=== PATIENT | female | born 2000 | race Caucasian/White ===

== ENCOUNTER 2018-04-16 17:19 | Emergency (ER) | payer MEDICAID, OTHER ==
[~2018-04-16] VITALS: Ht 160 cm; Wt 90.0 kg
[~2018-04-16 17:19] MED LIST: ALBU0.08 NEB; ALBUAER3 INH; AZIT250T3 PO; HYDR2.5C TOPICAL; MONT10TA2 PO; PRED20 PO; TRIAM.1%T TOPICAL
[2018-04-16 17:26] VITALS: BP 131/60; PULSE 89; RESP 20; TEMP 98.2; O2SAT 98
[2018-04-16] MEDS ORDERED: AMOX500C PO (18:47)
--- NOTE | 2018-04-16 18:47 | PD ---
HPI Chief Complaint: Cold / Flu Symptoms Time Seen by Provider: 18:39 Travel History International Travel<30 days: No Contact w/Intl Traveler<30days: No Traveled to known affect area: No History of Present Illness HPI 17-year-old female complains of sore throat and dry cough. Patient states that the symptoms started several days ago. Patient denies any fever. Patient denies any chest pain or shortness of breath. Patient denies abdominal pain. Patient states that she has intermittent nausea vomiting. Patient denies any dysuria frequency. PFSH Past Medical History Asthma: Yes Autoimmune Disease: No Cardiovascular Problems: No Developmental Delay: No Diminished Hearing: No Genitourinary: No Musculoskeletal: Yes (LEFT SIDE AND BACK PAIN FOR LAST FEW YEARS) Neurologic: No Psychiatric: No Reproductive: Yes (BAD CRAMPS) Respiratory: Yes (Asthma) Resp. Syncytial Virus (RSV): Yes ( CHILD) Immunizations Current: Yes ?: Not LMP: jJune 3 : 0 Past Surgical History Other Surgery: No Social History Alcohol Use: No Tobacco Use: No Substance Use: No Allergies-Medications (Allergen,Severity, Reaction): Coded Allergies: egg (Unverified Allergy, Mild, Rash, 06/07/17) cetirizine (Unverified Adverse Reaction, Severe, 06/07/17) Reported Meds & Prescriptions Reported Meds & Active Scripts Active Prednisone 20 Mg Tab 40 Mg PO DIRECTED Hydrocortisone Topical 2.5% Cream 1 Applic TOPICAL BID Azithromycin 250 Mg Tab 250 Mg PO DIRECTED Take 2 tabs (500 mg) on day 1 then 1 tab daily x 4 days. Albuterol Neb (Albuterol Sulfate) 2.5 Mg/3 Ml Neb 2.5 Mg NEB Q4HR NEB PRN Proair Hfa 8.5 GM Inh (Albuterol Sulfate) 90 Mcg/Act Aer 2 Puff INH Q4-6H 108 mcg/actuation Singulair (Montelukast Sodium) 10 Mg Tab 10 Mg PO HS Reported Triamcinolone Topical (Triamcinolone Acetonide) 0.1 % Oint 1 Applic TOPICAL BID Review of Systems General / Constitutional: No: Fever Eyes: No: Visual changes HENT: Positive: Sore Throat, No: Headaches Cardiovascular: No: Chest Pain or Discomfort Respiratory: No: Shortness of Breath Gastrointestinal: No: Abdominal Pain Genitourinary: No: Dysuria Musculoskeletal: No: Pain Skin: No Rash Neurologic: No: Weakness Psychiatric: No: Depression Endocrine: No: Polydipsia Hematologic/Lymphatic: No: Easy Bruising Physical Exam Narrative GENERAL: Well-nourished, well-developed patient. SKIN: Focused skin assessment warm/dry. HEAD: Normocephalic. EYES: No scleral icterus. No injection or drainage. TM: Clear. Throat: Erythematous with exudate and edema. NECK: Supple, trachea midline. No JVD. Patient has mild anterior cervical lymphadenopathy. No meningismus CARDIOVASCULAR: Regular rate and rhythm without murmurs, gallops, or rubs. RESPIRATORY: Breath sounds equal bilaterally. No accessory muscle use. GASTROINTESTINAL: Abdomen soft, non-tender, nondistended. MUSCULOSKELETAL: No cyanosis, or edema. BACK: Nontender without obvious deformity. No CVA tenderness. Data Data Last Documented VS Vital Signs Date Time Temp Pulse Resp B/P (MAP) Pulse Ox O2 Delivery O2 Flow Rate FiO2 04/16/18 17:26 98.2 89 20 131/60 (83) 98 MDM Medical Decision Making Medical Screen Exam Complete: Yes Emergency Medical Condition: Yes Differential Diagnosis Differential diagnoses including strep versus viral pharyngitis. Narrative Course 17-year-old female with sore throat. Diagnosis Primary Impression: Pharyngitis Qualified Codes: J02.9 - Acute pharyngitis, unspecified Patient Instructions: General Instructions Additional Instructions: Amoxicillin as directed. Tylenol for fever. Follow-up with personal physician. Return if worse. Med/Other Pt SpecificInfo: Prescription(s) given Scripts Amoxicillin (Amoxicillin) 500 Mg Cap 500 MG PO TID for Infection, #30 CAP 0 Refills Prov: Dragan Calderón MD 04/16/18 Disposition: 01 DISCHARGE HOME Condition: Stable Dragan Calderón MD Apr 16, 2018 18:47
== END 2018-04-16 19:10 | disposition home or self-care (01) ==
LOC: NEPD 17:19
DX: J02.9 Acute pharyngitis, unspecified (principal); R05 Cough; R11.2 Nausea with vomiting, unspecified; J45.909 Unspecified asthma, uncomplicated
CPT/HCPCS: 99283